=== PATIENT | male | born 1975 | race Caucasian/White ===

== ENCOUNTER 2017-12-12 20:46 | Inpatient (IN) | payer SELFPAY ==
[2017-12-12 21:20] LABS: ADD MAN DIFF? NO
[2017-12-12 21:24] LABS: BASO % 0 % (0-3); EOS # 0.3 x10^3/uL (0.0-0.7); EOS % 2 % (0-3); HEMATOCRIT 48.2 % (39.0-53.0); HEMOGLOBIN 16.8 g/dL (13.0-17.5); LYMPH # 2.4 x10^3/uL (1.0-4.8); LYMPH % 22 % (24-48); MEAN CORPUSCULAR HEMOGLOBIN 32 pg (25-35); MEAN CORPUSCULAR HGB CONC 35 g/dL (31-37); MEAN CORPUSCULAR VOLUME 92 fL (79-100); MONO # 0.8 x10^3/uL (0.0-1.1); MONO % 7 % (0-9); NEUT # 7.4 x10^3uL (1.8-7.7); NEUT % 68 % (31-73); PLATELET COUNT 244 x10^3/uL (140-400); RED BLOOD COUNT 5.25 x10^6/uL (4.30-5.70); RED CELL DISTRIBUTION WIDTH 12.8 % (11.5-14.5); WHITE BLOOD COUNT 10.8 x10^3/uL (4.0-11.0)
[2017-12-12 21:31] LABS: ANION GAP 13 (6-14); BLOOD UREA NITROGEN 13 mg/dL (8-26); BUN/CREATININE RATIO 11 (6-20); CALCIUM 9.3 mg/dL (8.5-10.1); CARBON DIOXIDE 23 mmol/L (21-32); CHLORIDE 101 mmol/L (98-107); CREATININE 1.2 mg/dL (0.7-1.3); GFR 66.1; GLUCOSE 112 mg/dL (70-99); POTASSIUM 3.6 mmol/L (3.5-5.1); SODIUM 137 mmol/L (136-145)
[2017-12-12 21:37] LABS: ALBUMIN 3.6 g/dL (3.4-5.0); ALBUMIN/GLOBULIN RATIO 0.9 (1.0-1.7); ALK PHOS 98 U/L (46-116); ALT (SGPT) 41 U/L (16-63); AST (SGOT) 25 U/L (15-37); TOTAL BILIRUBIN 0.7 mg/dL (0.2-1.0); TOTAL PROTEIN 7.7 g/dL (6.4-8.2)
[2017-12-12 21:41] LABS: TROPONINI < 0.017 ng/mL (0.000-0.055)
[2017-12-12] MEDS: IV NORMAL SALINE 1000ML BAG 1,000 ML IV (21:45)
[2017-12-12] MEDS: ONDANSETRON PF 4 MG/2 ML VIAL. IV (21:45)
[2017-12-12] MEDS: fentaNYL PF VIAL 100 MCG/2 ML VIAL IV ×2 (21:46→23:48)
[2017-12-12] MEDS ORDERED: IOHEXOL 300 MG/ML 100ML VIAL. (22:17)
[2017-12-12] MEDS: IOHEXOL 300 MG/ML 100ML VIAL. IV (22:28)
[2017-12-12] MEDS ORDERED: CONTRAST GIVEN. MC (22:30)
[2017-12-13] MEDS ORDERED: ONDANSETRON PF 4 MG/2 ML VIAL. IV ×2 (00:45→08:45)
[2017-12-13] MEDS: MORPHINE SULFATE 2 MG/ML DISP.SYRIN. IV ×9 (01:46→22:07)
[2017-12-13] MEDS: HYDROcodone/APAP 5/325MG 1 TAB TABLET PO (13:20)
[2017-12-13] MEDS: ANTI-COAG MONITOR BY PHARMACY. MC ×2 (16:17→16:26)
[2017-12-13] MEDS: NICOTINE 21MG PATCH. TD (20:00)
[2017-12-14] MEDS: traMADol 50 MG TABLET PO ×2 (00:58→07:24)
[2017-12-14] MEDS: MORPHINE SULFATE 2 MG/ML DISP.SYRIN. IV ×4 (03:24→12:35)
[2017-12-14 04:38] LABS: ADD MAN DIFF? NO
[2017-12-14 04:50] LABS: BASO # 0.1 x10^3/uL (0.0-0.2); BASO % 1 % (0-3); EOS # 0.3 x10^3/uL (0.0-0.7); EOS % 4 % (0-3); HEMATOCRIT 42.3 % (39.0-53.0); HEMOGLOBIN 14.8 g/dL (13.0-17.5); LYMPH # 2.3 x10^3/uL (1.0-4.8); LYMPH % 33 % (24-48); MEAN CORPUSCULAR HEMOGLOBIN 32 pg (25-35); MEAN CORPUSCULAR HGB CONC 35 g/dL (31-37); MEAN CORPUSCULAR VOLUME 93 fL (79-100); MONO # 0.5 x10^3/uL (0.0-1.1); MONO % 8 % (0-9); NEUT # 3.8 x10^3uL (1.8-7.7); NEUT % 55 % (31-73); PLATELET COUNT 228 x10^3/uL (140-400); RED BLOOD COUNT 4.57 x10^6/uL (4.30-5.70)
[2017-12-14 05:25] LABS: ANION GAP 8 (6-14); BLOOD UREA NITROGEN 11 mg/dL (8-26); CALCIUM 8.2 mg/dL (8.5-10.1); CARBON DIOXIDE 28 mmol/L (21-32); CHLORIDE 103 mmol/L (98-107); CREATININE 1.1 mg/dL (0.7-1.3); GFR 73.1; GLUCOSE 110 mg/dL (70-99); SODIUM 139 mmol/L (136-145)
[2017-12-14] MEDS: ACETAMINOPHEN 500 MG TABLET PO (07:23)
[2017-12-14] MEDS: NICOTINE 21MG PATCH. TD (07:29)
[2017-12-14] MEDS: ANTI-COAG MONITOR BY PHARMACY. MC (09:51)
[2017-12-15 13:55] LABS: HOMOCYSTINE LEVEL 9.5 umol/L (0.0-15.0)
[2017-12-17 12:00] LABS: CARDIOLIPIN ANTIBODIES SEE SEPARATE REPORT
== END 2017-12-14 14:17 | disposition home or self-care (01) | DRG 299 ==
LOC: 5 NORTH 12-13 00:32 → ER 20:46
DX: I82.401 Acute embolism and thrombosis of unspecified deep veins of right lower extremity (principal); I26.99 Other pulmonary embolism without acute cor pulmonale; F41.9 Anxiety disorder, unspecified; Z82.49 Family history of ischemic heart disease and other diseases of the circulatory system; E78.5 Hyperlipidemia, unspecified; I10 Essential (primary) hypertension; Z86.718 Personal history of other venous thrombosis and embolism; F17.200 Nicotine dependence, unspecified, uncomplicated
CPT/HCPCS: 36415; 71045; 71275; 80048; 80053; 83090; 84484; 85025; 93005; 93306; 96361; 96372; 96374; 96375; 96376; 99285; 99285-25; J1650; J2270; J2405; J3010; J7030; Q9967

== ENCOUNTER 2017-12-30 23:02 | Inpatient (IN) | payer SELFPAY ==
[2017-12-30 23:32] LABS: ADD MAN DIFF? NO
[2017-12-30] MEDS: IV NORMAL SALINE 1000ML BAG 1,000 ML IV (23:33)
[2017-12-30 23:34] LABS: BASO # 0.1 x10^3/uL (0.0-0.2); BASO % 1 % (0-3); EOS # 0.1 x10^3/uL (0.0-0.7); EOS % 1 % (0-3); HEMATOCRIT 45.2 % (39.0-53.0); HEMOGLOBIN 15.9 g/dL (13.0-17.5); LYMPH # 2.6 x10^3/uL (1.0-4.8); LYMPH % 28 % (24-48); MEAN CORPUSCULAR HEMOGLOBIN 33 pg (25-35); MEAN CORPUSCULAR HGB CONC 35 g/dL (31-37); MEAN CORPUSCULAR VOLUME 92 fL (79-100); MONO # 0.6 x10^3/uL (0.0-1.1); MONO % 6 % (0-9); NEUT % 64 % (31-73); PLATELET COUNT 262 x10^3/uL (140-400); RED CELL DISTRIBUTION WIDTH 12.9 % (11.5-14.5); WHITE BLOOD COUNT 9.4 x10^3/uL (4.0-11.0)
[2017-12-30] MEDS: fentaNYL PF VIAL 100 MCG/2 ML VIAL IV (23:35)
[2017-12-30 23:43] LABS: INR 1.1 (0.8-1.1); PARTIAL THROMBOPLASTIN TIME 29 SEC (24-38); PROTHROMBIN TIME PATIENT 13.7 SEC (11.7-14.0)
[2017-12-30 23:46] LABS: LIPASE 150 U/L (73-393)
[2017-12-30 23:46] LABS: ANION GAP 13 (6-14); BLOOD UREA NITROGEN 17 mg/dL (8-26); BUN/CREATININE RATIO 14 (6-20); CALCIUM 8.9 mg/dL (8.5-10.1); CARBON DIOXIDE 23 mmol/L (21-32); CHLORIDE 104 mmol/L (98-107); CREATININE 1.2 mg/dL (0.7-1.3); GFR 65.8; GLUCOSE 148 mg/dL (70-99); POTASSIUM 3.8 mmol/L (3.5-5.1); SODIUM 140 mmol/L (136-145)
[2017-12-30 23:52] LABS: ALBUMIN 3.7 g/dL (3.4-5.0); ALBUMIN/GLOBULIN RATIO 1.2 (1.0-1.7); ALK PHOS 88 U/L (46-116); ALT (SGPT) 69 U/L (16-63); AST (SGOT) 39 U/L (15-37); MAGNESIUM 1.9 mg/dL (1.8-2.4); TOTAL BILIRUBIN 0.6 mg/dL (0.2-1.0); TOTAL PROTEIN 6.7 g/dL (6.4-8.2)
[2017-12-30 23:55] LABS: TROPONINI < 0.017 ng/mL (0.000-0.055)
[2017-12-31] LABS: CKMB INDEX 0.3 % (0-4); CKMB MASS 1.1 ng/mL (0.0-3.6); CREATINE KINASE 369 U/L (39-308)
[2017-12-31] LABS: NT-PRO BNP 64 pg/mL (0-124)
[2017-12-31] MEDS: MORPHINE SULFATE 4 MG/ML DISP.SYRIN. IV ×7 (00:17→15:09)
[2017-12-31] MEDS ORDERED: ONDANSETRON PF 4 MG/2 ML VIAL. IV ×3 (01:30→08:00)
[2017-12-31 06:41] LABS: TROPONINI < 0.017 ng/mL (0.000-0.055)
[2017-12-31] MEDS ORDERED: ONDANSETRON ODT 4 MG TAB.RAPDIS. PO (08:00)
[2017-12-31 08:52] LABS: TROPONINI < 0.017 ng/mL (0.000-0.055)
[2017-12-31] MEDS: RIVAROXABAN 15 MG TABLET. PO ×2 (09:07→19:52)
[2017-12-31] MEDS: ACETAMINOPHEN 500 MG TABLET PO (11:25)
[2017-12-31] MEDS: IOHEXOL 300 MG/ML 100ML VIAL. IV (12:00)
[2017-12-31] MEDS ORDERED: CONTRAST GIVEN. MC (12:15)
[2017-12-31] MEDS: FAMOTIDINE 20 MG TABLET. PO ×2 (13:06→19:52)
[2017-12-31] MEDS: ANTI-COAG MONITOR BY PHARMACY. MC (14:10)
[2017-12-31] MEDS: ACETAMINOPHEN/CODEINE 300/30MG TABLET. PO (19:51)
[2017-12-31] MEDS: traZODone 50 MG TABLET. PO (22:00)
[2018-01-01] MEDS: ACETAMINOPHEN/CODEINE 300/30MG TABLET. PO ×2 (02:18→09:56)
[2018-01-01] MEDS: FAMOTIDINE 20 MG TABLET. PO (09:56)
[2018-01-01] MEDS: ANTI-COAG MONITOR BY PHARMACY. MC (14:16)
[2018-01-01] MEDS ORDERED: RIVAROXABAN 10 MG TABLET. PO (17:00)
[2018-01-02] MEDS ORDERED: PANTOPRAZOLE 40 MG TABLET.DR. PO (07:30)
== END 2018-01-01 15:50 | disposition home or self-care (01) | DRG 392 ==
LOC: 2 SOUTH 12-31 01:30 → ER 23:02
DX: K21.9 Gastro-esophageal reflux disease without esophagitis (principal); D68.51 Activated protein C resistance; I10 Essential (primary) hypertension; E78.5 Hyperlipidemia, unspecified; F41.9 Anxiety disorder, unspecified; E66.9 Obesity, unspecified; I87.009 Postthrombotic syndrome without complications of unspecified extremity; F17.210 Nicotine dependence, cigarettes, uncomplicated; F51.04 Psychophysiologic insomnia; R91.1 Solitary pulmonary nodule; Z86.711 Personal history of pulmonary embolism; Z86.718 Personal history of other venous thrombosis and embolism; Z68.34 Body mass index [BMI] 34.0-34.9, adult; Z79.01 Long term (current) use of anticoagulants; Z82.49 Family history of ischemic heart disease and other diseases of the circulatory system; Z80.7 Family history of other malignant neoplasms of lymphoid, hematopoietic and related tissues; Z83.3 Family history of diabetes mellitus
CPT/HCPCS: 36415; 71045; 71275; 80053; 82553; 83690; 83735; 83880; 84484; 85025; 85610; 85730; 93005; 96361; 96372; 96374; 99285; 99285-25; J1650; J2270; J3010; J7030; Q9967

== ENCOUNTER 2019-07-28 04:06 | Emergency (ER) | payer OTHER ==
[~2019-07-28] VITALS: Ht 177.8 cm; Wt 100.0 kg
[~2019-07-28 04:06] MED LIST: APIX5TAB PO; MAG355OR11 PO; RIVA15TA PO; RIVA20TA2 PO; TRAZ-118 PO
[2019-07-28] MEDS ORDERED: NITROGLYCERIN SUBLINGUAL 0.4 MG BOTTLE OF 25. SL PRN (04:30)
[2019-07-28] MEDS ORDERED: ASPIRIN CHEWABLE 81 MG TABLET. PO ONE (04:30)
--- NOTE | 2019-07-28 04:30 | PHYS DOC ---
Past Medical History Past Medical History: DVT Additional Past Medical Histor: CARDIAC CATH WITH NO INTERVENTIONS, PULMONARY EMBOLI (KARISHMA SHEPARD MD) Past Surgical History: Other Additional Past Surgical Histo: HEART CATH 2003 (KARISHMA SHEPARD MD) Smoking Status: Current Some Day Smoker Alcohol Use: None Drug Use: None (KARISHMA SHEPARD MD) Adult General Chief Complaint Chief Complaint: CHEST PAIN HPI HPI 43-year-old male presents to the emergency department with complaints of wrist pain which woke him approximately 2 AM. Patient has a history of hypertension, he states he's had a cardiac catheter before however no stent placement. He describes the pain as achy, sharp worse with ambulation. He denies any nausea, vomiting, shortness breath, diaphoresis. He does state he's had a cough. The pain woke him again around 2 AM subsequently subsided he went to work however states at work he had worsening pain and therefore presented the emergency department for further evaluation. Pain does not radiate. (KARISHMA SHEPARD MD) Review of Systems Review of Systems Constitutional: Denies fever or chills [] Respiratory: Denies cough or shortness of breath [] Cardiovascular: No additional information not addressed in HPI [] GI: Denies abdominal pain, nausea, vomiting, bloody stools or diarrhea [] : Denies dysuria or hematuria [] Musculoskeletal: Denies back pain or joint pain [] Integument: Denies rash or skin lesions [] Neurologic: Denies headache, focal weakness or sensory changes [] All other systems were reviewed and found to be within normal limits, except as documented in this note. (KARISHMA SHEPARD MD) Current Medications Current Medications Current Medications Medications (Trade) Dose Ordered Sig/[facility] Start Time Stop Time Status Last Admin Dose Admin Acetaminophen (Tylenol) 1,000 mg 1X ONCE 07/28/19 05:15 07/28/19 05:16 DC 07/28/19 05:28 1,000 MG Aspirin (Children'S Aspirin) 324 mg 1X ONCE 07/28/19 04:30 07/28/19 04:34 DC 07/28/19 04:35 324 MG Nitroglycerin (Nitrostat) 0.4 mg STK-MED ONCE 07/28/19 04:34 07/28/19 04:34 DC (JAKE EVERETT MD) Allergies Allergies Allergies Coded Allergies Type Severity Reaction Last Updated Verified No Known Drug Allergies 02/28/15 No (JAKE EVERETT MD) Physical Exam Physical Exam Constitutional: Well developed, well nourished, no acute distress, non-toxic appearance. [] HENT: Normocephalic, atraumatic, bilateral external ears normal, oropharynx moist, no oral exudates, nose normal. [] Eyes: PERRLA, EOMI, conjunctiva normal, no discharge. [] Neck: Normal range of motion, no tenderness, supple, no stridor. [] Cardiovascular:Heart rate regular rhythm, no murmur [] Lungs & Thorax: Bilateral breath sounds clear to auscultation [] Abdomen: Bowel sounds normal, soft, no tenderness, no masses, no pulsatile masses. [] Skin: Warm, dry, no erythema, no rash. [] Back: No tenderness, no CVA tenderness. [] Extremities: No tenderness, no cyanosis, no clubbing, ROM intact, no edema. [] Neurologic: Alert and oriented X 3, normal motor function, normal sensory function, no focal deficits noted. [] Psychologic: Affect normal, judgement normal, mood normal. [] (KARISHMA SHEPARD MD) Current Patient Data Vital Signs Vital Signs Date Time Temp Pulse Resp B/P (MAP) Pulse Ox O2 Delivery O2 Flow Rate FiO2 07/28/19 06:30 66 20 112/68 (83) 97 Room Air 07/28/19 04:08 98.2 98.2 (JAKE EVERETT MD) Lab Values Laboratory Tests Test 07/28/19 04:25 07/28/19 07:15 White Blood Count 6.2 x10^3/uL (4.0-11.0) Red Blood Count 5.23 x10^6/uL (4.30-5.70) Hemoglobin 17.0 g/dL (13.0-17.5) Hematocrit 49.2 % (39.0-53.0) Mean Corpuscular Volume 94 fL (79-100) Mean Corpuscular Hemoglobin 32 pg (25-35) Mean Corpuscular Hemoglobin Concent 35 g/dL (31-37) Red Cell Distribution Width 12.7 % (11.5-14.5) Platelet Count 241 x10^3/uL (140-400) Neutrophils (%) (Auto) 63 % (31-73) Lymphocytes (%) (Auto) 27 % (24-48) Monocytes (%) (Auto) 8 % (0-9) Eosinophils (%) (Auto) 2 % (0-3) Basophils (%) (Auto) 0 % (0-3) Neutrophils # (Auto) 3.9 x10^3/uL (1.8-7.7) Lymphocytes # (Auto) 1.7 x10^3/uL (1.0-4.8) Monocytes # (Auto) 0.5 x10^3/uL (0.0-1.1) Eosinophils # (Auto) 0.1 x10^3/uL (0.0-0.7) Basophils # (Auto) 0.0 x10^3/uL (0.0-0.2) D-Dimer (Mary Lou) 0.40 ug/mlFEU (0.00-0.50) Sodium Level 139 mmol/L (136-145) Potassium Level 4.1 mmol/L (3.5-5.1) Chloride Level 105 mmol/L (98-107) Carbon Dioxide Level 25 mmol/L (21-32) Anion Gap 9 (6-14) Blood Urea Nitrogen 12 mg/dL (8-26) Creatinine 0.8 mg/dL (0.7-1.3) Estimated GFR (Cockcroft-Gault) 104.5 BUN/Creatinine Ratio 15 (6-20) Glucose Level 124 mg/dL (70-99) H Calcium Level 9.0 mg/dL (8.5-10.1) Magnesium Level 2.2 mg/dL (1.8-2.4) Total Bilirubin 0.6 mg/dL (0.2-1.0) Aspartate Amino Transferase (AST) 30 U/L (15-37) Alanine Aminotransferase (ALT) 52 U/L (16-63) Alkaline Phosphatase 76 U/L (46-116) Troponin I Quantitative < 0.017 ng/mL (0.000-0.055) < 0.017 ng/mL (0.000-0.055) AZ-Xpj-I-Type Natriuretic Peptide 11 pg/mL (0-124) Total Protein 6.6 g/dL (6.4-8.2) Albumin 3.7 g/dL (3.4-5.0) Albumin/Globulin Ratio 1.3 (1.0-1.7) Lipase 133 U/L (73-393) Laboratory Tests 07/28/19 04:25 Laboratory Tests 07/28/19 04:25 (JAKE EVERETT MD) Lab Values Laboratory Tests Test 07/28/19 04:25 White Blood Count 6.2 x10^3/uL (4.0-11.0) Red Blood Count 5.23 x10^6/uL (4.30-5.70) Hemoglobin 17.0 g/dL (13.0-17.5) Hematocrit 49.2 % (39.0-53.0) Mean Corpuscular Volume 94 fL (79-100) Mean Corpuscular Hemoglobin 32 pg (25-35) Mean Corpuscular Hemoglobin Concent 35 g/dL (31-37) Red Cell Distribution Width 12.7 % (11.5-14.5) Platelet Count 241 x10^3/uL (140-400) Neutrophils (%) (Auto) 63 % (31-73) Lymphocytes (%) (Auto) 27 % (24-48) Monocytes (%) (Auto) 8 % (0-9) Eosinophils (%) (Auto) 2 % (0-3) Basophils (%) (Auto) 0 % (0-3) Neutrophils # (Auto) 3.9 x10^3/uL (1.8-7.7) Lymphocytes # (Auto) 1.7 x10^3/uL (1.0-4.8) Monocytes # (Auto) 0.5 x10^3/uL (0.0-1.1) Eosinophils # (Auto) 0.1 x10^3/uL (0.0-0.7) Basophils # (Auto) 0.0 x10^3/uL (0.0-0.2) D-Dimer (Mary Lou) 0.40 ug/mlFEU (0.00-0.50) Sodium Level 139 mmol/L (136-145) Potassium Level 4.1 mmol/L (3.5-5.1) Chloride Level 105 mmol/L (98-107) Carbon Dioxide Level 25 mmol/L (21-32) Anion Gap 9 (6-14) Blood Urea Nitrogen 12 mg/dL (8-26) Creatinine 0.8 mg/dL (0.7-1.3) Estimated GFR (Cockcroft-Gault) 104.5 BUN/Creatinine Ratio 15 (6-20) Glucose Level 124 mg/dL (70-99) H Calcium Level 9.0 mg/dL (8.5-10.1) Magnesium Level 2.2 mg/dL (1.8-2.4) Total Bilirubin 0.6 mg/dL (0.2-1.0) Aspartate Amino Transferase (AST) 30 U/L (15-37) Alanine Aminotransferase (ALT) 52 U/L (16-63) Alkaline Phosphatase 76 U/L (46-116) Troponin I Quantitative < 0.017 ng/mL (0.000-0.055) FR-Obm-J-Type Natriuretic Peptide 11 pg/mL (0-124) Total Protein 6.6 g/dL (6.4-8.2) Albumin 3.7 g/dL (3.4-5.0) Albumin/Globulin Ratio 1.3 (1.0-1.7) Lipase 133 U/L (73-393) Laboratory Tests 07/28/19 04:25 Laboratory Tests 07/28/19 04:25 (KARISHMA SHEPARD MD) EKG EKG EKG reviewed, normal sinus rhythm, heart rate 85, left axis deviation interpretation time 0 426, no STEMI[] (KARISHMA SHEPARD MD) Radiology/Procedures Radiology/Procedures [facility] [address] [place] [address] IMAGING REPORT Signed PATIENT: ALINE MCCLELLAN ACCOUNT: [id number] : 1975 LOCATION: ER AGE: 43 SEX: M EXAM STATUS: REG ER ORD. PHYSICIAN: KARISHMA SHEPARD MD REASON: chest pain PROCEDURE: PORTABLE CHEST 1V Single view chest dated 07/28/2019: No comparison available. Clinical Indication: Chest pain. Findings: Single upright portable exam of the chest was performed. Heart size and mediastinal contours are within normal limits given technique. The lungs are clear without evidence of focal consolidation. Vascular interstitium is within normal limits. Impression:: Negative portable chest. Electronically signed by: Milton Arboleda MD (07/28/2019 4:35 AM) [id number] DICTATED and SIGNED BY: MILTON ARBOLEDA MD DATE: 07/28/19 0435 [] (KARISHMA SHEPARD MD) Course & Med Decision Making Course & Med Decision Making Pertinent Labs and Imaging studies reviewed. (See chart for details) []43-year-old male presents to the emergency department with complaints of wrist pain which woke him approximately 2 AM. Patient has a history of hypertension, he states he's had a cardiac catheter before however no stent placement. He describes the pain as achy, sharp worse with ambulation. He denies any nausea, vomiting, shortness breath, diaphoresis. He does state he's had a cough. The pain woke him again around 2 AM subsequently subsided he went to work however states at work he had worsening pain and therefore presented the emergency department for further evaluation. Pain does not radiate. ASA/NTG provided Reassessment - pain improved in chest 0500 however patient with headache HEART score 2 Initial troponin negative repeat pending 3 hours from now Ddimer ordered will follow up, patient with history of DVT/PE only on aspirin at this time - ddimer within in normal limits Care to be transferred to oncoming colleague DR EVERETT at shift change - awaiting 2nd enzyme set, she will follow up with disposition HEART score as above if no return of chest pain and negative 2nd enzyme set would recommend dc home and follow up with PCP (KARISHMA SHEPARD MD) Course & Med Decision Making At 0700:Patient care transferred to [place] at 0600 for follow-up for results of repeat troponin at 0710. Patient was evaluated and chart reviewed. Patient was chest pain-free. Patient has heart score of 2 and history of DVT and PE with negative d-dimer and cardiac enzyme and electrolytes. In for the results of repeat troponin at 0710. At 0830: Second set of troponin was negative. Patient was advised follow-up with his primary care physician for more cardiac evaluation. (JAKE EVERETT MD) Dragon Disclaimer Dragon Disclaimer This electronic medical record was generated, in whole or in part, using a voice recognition dictation system. (KARISHMA SHEPARD MD) The HEART Score for CP Pts HEART Score for Chest Pain: HEART Score for Chest Pain Response (Comments) Value History Slighlty/Non-Suspicious 0 ECG Normal 0 Age >45 - < 65 1 Risk Factors 1 or 2 Risk Factors 1 Troponin < Normal Limit 0 Total 2 Risk Factors: Risk Factors: DM, Current or recent (<one month) smoker, HTN, HLP, family history of CAD, obesity. Risk Scores: Score 0 - 3: 2.5% MACE over next 6 weeks - Discharge Home Score 4 - 6: 20.3% MACE over next 6 weeks - Admit for Clinical Observation Score 7 - 10: 72.7% MACE over next 6 weeks - Early Invasive Strategies (KARISHMA SHEPARD MD) Departure Departure Impression: Primary Impression: Chest pain Disposition: HOME, SELF-CARE (at 08-32) Condition: STABLE Referrals: BASILIO BENTON (PCP) Patient Instructions: Chest Pain (Nonspecific) Additional Instructions: Follow-up with your primary care physician in 2-3 days for more heart evaluation Return to ER if not getting better Problem Qualifiers Primary Impression: Chest pain Chest pain type: unspecified Qualified Codes: R07.9 - Chest pain, unspecified KARISHMA SHEPARD MD Jul 28, 2019 04:30 JAKE EVERETT MD Jul 28, 2019 08:00
[2019-07-28] MEDS ORDERED: NITROGLYCERIN SUBLINGUAL 0.4 MG BOTTLE OF 25. SL ONE (04:34)
[2019-07-28 04:36] LABS: BASO % 0 % (0-3); EOS # 0.1 x10^3/uL (0.0-0.7); EOS % 2 % (0-3); HEMATOCRIT 49.2 % (39.0-53.0); LYMPH # 1.7 x10^3/uL (1.0-4.8); LYMPH % 27 % (24-48); MEAN CORPUSCULAR HEMOGLOBIN 32 pg (25-35); MEAN CORPUSCULAR HGB CONC 35 g/dL (31-37); MEAN CORPUSCULAR VOLUME 94 fL (79-100); MONO # 0.5 x10^3/uL (0.0-1.1); MONO % 8 % (0-9); NEUT # 3.9 x10^3/uL (1.8-7.7); NEUT % 63 % (31-73); PLATELET COUNT 241 x10^3/uL (140-400); RED BLOOD COUNT 5.23 x10^6/uL (4.30-5.70); RED CELL DISTRIBUTION WIDTH 12.7 % (11.5-14.5); WHITE BLOOD COUNT 6.2 x10^3/uL (4.0-11.0)
--- NOTE | 2019-07-28 04:38 | RAD ---
Single view chest dated 07/28/2019: No comparison available. Clinical Indication: Chest pain. Findings: Single upright portable exam of the chest was performed. Heart size and mediastinal contours are within normal limits given technique. The lungs are clear without evidence of focal consolidation. Vascular interstitium is within normal limits. Impression:: Negative portable chest. Electronically signed by: Milton Arboleda MD (07/28/2019 4:35 AM) [id number]
[2019-07-28 04:43] LABS: CREATININE 0.8 mg/dL (0.7-1.3); GFR 104.5; POTASSIUM 4.1 mmol/L (3.5-5.1)
[2019-07-28 04:53] LABS: ALBUMIN 3.7 g/dL (3.4-5.0); ALBUMIN/GLOBULIN RATIO 1.3 (1.0-1.7); MAGNESIUM 2.2 mg/dL (1.8-2.4); TOTAL BILIRUBIN 0.6 mg/dL (0.2-1.0); TOTAL PROTEIN 6.6 g/dL (6.4-8.2)
[2019-07-28] MEDS ORDERED: ACETAMINOPHEN 500 MG TABLET PO ONE (05:15)
--- NOTE | 2019-07-28 05:58 | EKG ---
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
[2019-07-28 09:00] VITALS: BP 116/69
== END 2019-07-28 09:05 | disposition home or self-care (01) ==
LOC: ER 04:06
DX: R07.89 Other chest pain (principal); M25.539 Pain in unspecified wrist; F17.200 Nicotine dependence, unspecified, uncomplicated; I10 Essential (primary) hypertension; Z98.890 Other specified postprocedural states; Z86.718 Personal history of other venous thrombosis and embolism
CPT/HCPCS: 36415; 71045; 80053; 83690; 83735; 83880; 84484; 85025; 85379; 93005; 99285

== ENCOUNTER 2020-10-24 15:34 | Emergency (ER) | payer OTHER ==
[~2020-10-24] VITALS: Ht 177.8 cm; Wt 104.5 kg
[2020-10-24 15:58] LABS: BASO % 1 % (0-3); EOS # 0.1 x10^3/uL (0.0-0.7); EOS % 2 % (0-3); HEMATOCRIT 48.5 % (39.0-53.0); HEMOGLOBIN 17.3 g/dL (13.0-17.5); LYMPH # 2.2 x10^3/uL (1.0-4.8); LYMPH % 28 % (24-48); MEAN CORPUSCULAR HEMOGLOBIN 33 pg (25-35); MEAN CORPUSCULAR HGB CONC 36 g/dL (31-37); MEAN CORPUSCULAR VOLUME 92 fL (79-100); MONO # 0.5 x10^3/uL (0.0-1.1); MONO % 6 % (0-9); NEUT # 4.9 x10^3/uL (1.8-7.7); NEUT % 63 % (31-73); PLATELET COUNT 238 x10^3/uL (140-400); RED BLOOD COUNT 5.29 x10^6/uL (4.30-5.70); RED CELL DISTRIBUTION WIDTH 13.1 % (11.5-14.5); WHITE BLOOD COUNT 7.8 x10^3/uL (4.0-11.0)
[2020-10-24] MEDS ORDERED: FAMOTIDINE 20 MG/2 ML VIAL IVP ONE (16:00)
[2020-10-24] MEDS ORDERED: IV NORMAL SALINE 1000ML BAG 1,000 ML IV ONE (16:00)
[2020-10-24] MEDS ORDERED: methylPREDNISolone SOD SUCC PF 125 MG/2 ML VIAL. IV ONE (16:00)
--- NOTE | 2020-10-24 16:10 | PHYS DOC ---
Past Medical History Past Medical History: DVT Additional Past Medical Histor: CARDIAC CATH WITH NO INTERVENTIONS, PULMONARY EMBOLI Past Surgical History: Other Additional Past Surgical Histo: HEART CATH 2003 Smoking Status: Current Some Day Smoker Additional Information: 1 ppd Alcohol Use: None Drug Use: None General Adult EDM: Chief Complaint: INSECT BITE HPI: HPI: Patient is a 44 year old male who presents with was letting his dog out side when he was in the doorway and got stung in the right neck by a wasp. He rates his pain a 6 out of 10. He states the minute he got stung by the wasp he became very dizzy. He denies syncope. EMS gave the patient 50 mg IM of Benadryl. Patient denies shortness of breath, neck tightness, throat tightness, throat itching, facial swelling, hives, chest pain, abdominal pain, nausea, vomiting, diarrhea, syncope. Review of Systems: Review of Systems: Constitutional: Denies fever or chills. [] Eyes: Denies change in visual acuity. [] HENT: Denies nasal congestion or sore throat. [] Respiratory: Denies cough or shortness of breath. [] Cardiovascular: Denies chest pain or edema. [] GI: Denies abdominal pain, nausea, vomiting, bloody stools or diarrhea. [] : Denies dysuria. [] Musculoskeletal: Denies back pain or joint pain. [] Integument: Denies rash. + Right neck insect sting [] Neurologic: Denies headache, focal weakness or sensory changes. + Dizziness [] Endocrine: Denies polyuria or polydipsia. [] Lymphatic: Denies swollen glands. [] Psychiatric: Denies depression or anxiety. [] Heart Score: C/O Chest Pain: No Risk Factors: Risk Factors: DM, Current or recent (<one month) smoker, HTN, HLP, family history of CAD, obesity. Risk Scores: Score 0 - 3: 2.5% MACE over next 6 weeks - Discharge Home Score 4 - 6: 20.3% MACE over next 6 weeks - Admit for Clinical Observation Score 7 - 10: 72.7% MACE over next 6 weeks - Early Invasive Strategies Current Medications: Current Medications Medications (Trade) Dose Ordered Sig/Alfred Start Time Stop Time Status Last Admin Dose Admin Famotidine (Pepcid Vial) 20 mg 1X ONCE 10/24/20 16:00 10/24/20 16:01 DC 10/24/20 15:59 20 MG Methylprednisolone Sodium Succinate (SOLU-Medrol 125MG VIAL) 125 mg 1X ONCE 10/24/20 16:00 10/24/20 16:01 DC 10/24/20 16:05 125 MG Sodium Chloride 1,000 ml @ 1,000 mls/hr 1X ONCE 10/24/20 16:00 10/24/20 16:59 10/24/20 15:56 1,000 MLS/HR Allergies: Allergies: Allergies Coded Allergies Type Severity Reaction Last Updated Verified No Known Drug Allergies 10/24/20 No Physical Exam: PE: Constitutional: Well developed, well nourished, no acute distress, non-toxic appearance. [] HENT: Normocephalic, atraumatic, bilateral external ears normal, oropharynx moist, no oral exudates, nose normal. [] Eyes: PERRLA, EOMI, conjunctiva normal, no discharge. [] Neck: Normal range of motion, no tenderness, supple, no stridor. [] Cardiovascular:Heart rate regular rhythm, no murmur [] Lungs & Thorax: Bilateral breath sounds clear to auscultation [] Abdomen: Bowel sounds normal, soft, no tenderness, no masses, no pulsatile masses. [] Skin: Warm, dry, no erythema, no rash. Insect sting to the right neck with redness [] Back: No tenderness, no CVA tenderness. [] Extremities: No tenderness, no cyanosis, no clubbing, ROM intact, no edema. [] Neurologic: Alert and oriented X 3, normal motor function, normal sensory function, no focal deficits noted. [] Psychologic: Affect normal, judgement normal, mood normal. [] Current Patient Data: Labs: Laboratory Tests Test 10/24/20 15:50 White Blood Count 7.8 x10^3/uL (4.0-11.0) Red Blood Count 5.29 x10^6/uL (4.30-5.70) Hemoglobin 17.3 g/dL (13.0-17.5) Hematocrit 48.5 % (39.0-53.0) Mean Corpuscular Volume 92 fL (79-100) Mean Corpuscular Hemoglobin 33 pg (25-35) Mean Corpuscular Hemoglobin Concent 36 g/dL (31-37) Red Cell Distribution Width 13.1 % (11.5-14.5) Platelet Count 238 x10^3/uL (140-400) Neutrophils (%) (Auto) 63 % (31-73) Lymphocytes (%) (Auto) 28 % (24-48) Monocytes (%) (Auto) 6 % (0-9) Eosinophils (%) (Auto) 2 % (0-3) Basophils (%) (Auto) 1 % (0-3) Neutrophils # (Auto) 4.9 x10^3/uL (1.8-7.7) Lymphocytes # (Auto) 2.2 x10^3/uL (1.0-4.8) Monocytes # (Auto) 0.5 x10^3/uL (0.0-1.1) Eosinophils # (Auto) 0.1 x10^3/uL (0.0-0.7) Basophils # (Auto) 0.0 x10^3/uL (0.0-0.2) Laboratory Tests 10/24/20 15:50 Vital Signs: Vital Signs Date Time Temp Pulse Resp B/P (MAP) Pulse Ox O2 Delivery O2 Flow Rate FiO2 10/24/20 16:05 98 20 144/77 (99) 95 Room Air 10/24/20 15:38 98.1 98.1 EKG: EK and read by Dr. Reid is sinus rhythm and no STEMI Radiology/Procedures: Radiology/Procedures: [] Course & Med Decision Making: Course & Med Decision Making Pertinent Labs and Imaging studies reviewed. (See chart for details) See HPI. Alert and oriented x4. Ambulatory with steady gait. Speaks in full clear sentences. Throat is not swollen uvula is midline. No tongue swelling or angioedema present. Wasp sting is about a quarter size around it a red area to the right neck. There is no swelling. Full range of motion of the neck. No respiratory distress. Lungs are clear all station all lobes. Patient is given Pepcid and Solu-Medrol in the ED. He is also given a liter of normal saline fluids. Patient states he is feeling much better. The redness around the sting has gone away. Patient states he is ready to go home. He is stable and in no distress. [] Dragon Disclaimer: Dragon Disclaimer: This electronic medical record was generated, in whole or in part, using a voice recognition dictation system. Departure Departure Impression: Primary Impression: Insect sting Qualified Codes: T63.484A - Toxic effect of venom of other arthropod, undetermined, initial encounter Disposition: HOME / SELF CARE / HOMELESS Condition: STABLE Referrals: BASILIO BENTON (PCP) Patient Instructions: Insect Sting Allergy Additional Instructions: Follow-up with your primary care provider if needed. Take medication as prescribed and with food. Drink plenty of fluids. If at anytime you begin having swelling in her throat and severe shortness of breath, call 911 Scripts Diphenhydramine Hcl (BENADRYL ALLERGY) 25 Mg Tablet 2 TAB PO Q6HRS for 5 Days, #40 TAB 0 Refills Prov: DANIA JUSTICE COMM[employer] RECREATION COORDINATOR 10/24/20 Methylprednisolone (MEDROL) 4 Mg Tab.ds.pk 1 PKG PO UD, #1 PKG Prov: DANIA JUSTICE COMMUNITY RECREATION COORDINATOR 10/24/20 Famotidine (PEPCID) 20 Mg Tablet 20 MG PO BID, #10 TAB Prov: DANIA JUSTICE COMMUNITY RECREATION COORDINATOR 10/24/20 DANIA JUSTICE COMMUNITY RECREATION COORDINATOR October 24, 2020 16:10
[2020-10-24 16:16] LABS: CALCIUM 8.4 mg/dL (8.5-10.1); CREATININE 1.4 mg/dL (0.7-1.3); GFR 54.6; POTASSIUM 3.8 mmol/L (3.5-5.1)
[2020-10-24 16:23] LABS: ALBUMIN 3.9 g/dL (3.4-5.0); ALBUMIN/GLOBULIN RATIO 1.3 (1.0-1.7); TOTAL BILIRUBIN 0.8 mg/dL (0.2-1.0)
[2020-10-24] MEDS ORDERED: METH4TAB2 PO (17:52)
[2020-10-24] MEDS ORDERED: FAMO-63 PO (17:52)
[2020-10-24] MEDS ORDERED: DIPH25TA64 PO (17:52)
--- NOTE | 2020-10-24 18:06 | EKG ---
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
[2020-10-24 18:16] VITALS: BP 132/70
== END 2020-10-24 18:16 | disposition home or self-care (01) ==
LOC: ER 15:34
DX: T63.461A Toxic effect of venom of wasps, accidental (unintentional), initial encounter (principal); F17.200 Nicotine dependence, unspecified, uncomplicated; Z86.718 Personal history of other venous thrombosis and embolism; Y92.89 Other specified places as the place of occurrence of the external cause
CPT/HCPCS: 36415; 80053; 84484; 85025; 93005; 96361; 96374; 96375; 99285; J2930; J3490; J7030

== ENCOUNTER 2020-12-31 10:09 | Emergency (ER) | payer OTHER ==
[~2020-12-31] VITALS: Ht 177.8 cm; Wt 107.0 kg
[~2020-12-31 10:09] MED LIST changes: +DIPH25TA64 PO; +FAMO-63 PO; +METH4TAB2 PO
[2020-12-31 11:30] LABS: BASO % 1 % (0-3); EOS # 0.1 x10^3/uL (0.0-0.7); EOS % 2 % (0-3); HEMATOCRIT 45.6 % (39.0-53.0); HEMOGLOBIN 16.1 g/dL (13.0-17.5); LYMPH # 1.6 x10^3/uL (1.0-4.8); LYMPH % 23 % (24-48); MEAN CORPUSCULAR HEMOGLOBIN 33 pg (25-35); MEAN CORPUSCULAR HGB CONC 35 g/dL (31-37); MEAN CORPUSCULAR VOLUME 92 fL (79-100); MONO # 0.5 x10^3/uL (0.0-1.1); MONO % 6 % (0-9); NEUT # 4.9 x10^3/uL (1.8-7.7); NEUT % 69 % (31-73); PLATELET COUNT 216 x10^3/uL (140-400); RED BLOOD COUNT 4.94 x10^6/uL (4.30-5.70); RED CELL DISTRIBUTION WIDTH 12.8 % (11.5-14.5); WHITE BLOOD COUNT 7.1 x10^3/uL (4.0-11.0)
[2020-12-31 11:43] LABS: CALCIUM 8.6 mg/dL (8.5-10.1); CREATININE 0.9 mg/dL (0.7-1.3); GFR 90.4; POTASSIUM 4.2 mmol/L (3.5-5.1)
[2020-12-31 11:44] LABS: PROTHROMBIN TIME PATIENT 12.5 SEC (11.7-14.0)
[2020-12-31] MEDS ORDERED: MORPHINE SULFATE 4 MG/ML INJ. IVP ONE ×2 (11:45→13:45)
[2020-12-31] MEDS ORDERED: ONDANSETRON PF 4 MG/2 ML VIAL. IVP ONE (11:45)
[2020-12-31 11:48] LABS: ALBUMIN 3.5 g/dL (3.4-5.0); ALBUMIN/GLOBULIN RATIO 1.2 (1.0-1.7); TOTAL BILIRUBIN 0.7 mg/dL (0.2-1.0); TOTAL PROTEIN 6.5 g/dL (6.4-8.2)
[2020-12-31] MEDS ORDERED: IOHEXOL 350 MG/ML 100 ML VIAL. IV ONE (12:15)
[2020-12-31] MEDS ORDERED: CONTRAST GIVEN. MC PRN (12:15)
--- NOTE | 2020-12-31 12:46 | RAD ---
PQRS Compliance Statement: One or more of the following individualized dose reduction techniques were utilized for this examinat ion: 1. Automated exposure control 2. Adjustment of the mA and/or kV according to patient size 3. Use of iterative reconstruction technique CTA CHEST 12/31/2020 12:00 PM INDICATION: Shortness of breath, clotting disorder. History of DVT. COMPARISON: CT chest 12/31/2017 TECHNIQUE: Axial CT images of the chest were obtained after the intravenous administration of nonioni c contrast. Coronal and sagittal reformats are provided. Maximum intensity projection images of the t horacic vasculature are provided. FINDINGS: The thyroid gland is normal in appearance. There are no pathologically enlarged axillary, mediastinal or hilar lymph nodes. The heart size is within normal limits. No significant pericardial effusion. T horacic aorta is normal in course and caliber. There is adequate opacification of the pulmonary arterial system. There there are no filling defects within the pulmonary arterial system to suggest acute or chronic pulmonary embolus. 2 mm solid noncalcified pulmonary nodule in the left upper lobe anteriorly (series 3, image 69). Ther e is a 3 mm solid noncalcified nodule in the lateral right lower lobe (series 3, image 83).. There ar e no pulmonary infiltrates. There are no pleural effusions. No pulmonary vascular congestion or pneum othorax. Visualized portions of the upper abdomen are within normal limits. No suspicious osseous lesions are visualized. IMPRESSION: There is no evidence for acute or chronic pulmonary embolism. 3 mm solid noncalcified pulmonary nodule in the lateral right lower lobe. Fleischner guidelines for i ncidentally detected pulmonary nodules suggests no routine follow-up for low risk patients and option al CT at 12 months for high risk patients with solid noncalcified pulmonary nodules less than 6 mm in size. Electronically signed by: Patricia Gee MD (12/31/2020 12:44 PM) [id number]
--- NOTE | 2020-12-31 12:59 | RAD ---
Left lower extremity venous ultrasound, : History: Left leg pain, redness, swelling, history DVT Duplex evaluation including grayscale, color flow and spectral Doppler analysis was performed. The femoral and popliteal veins show no filling defects to suggest DVT. The visualized calf veins are u nremarkable. There is lack of compression of the left greater saphenous vein beginning in the mid thigh extending to the calf IMPRESSION: 1. There is no sonographic evidence of deep vein thrombosis in the left lower extremity. 2. Venous thrombosis involving the left greater saphenous vein. Electronically signed by: Herrera Castellanos MD (12/31/2020 12:57 PM) [facility]
[2020-12-31 13:56] LABS: BILIRUBIN,URINE NEGATIVE (NEG); CLARITY,URINE CLEAR; COLOR,URINE YELLOW; NITRITE,URINE NEGATIVE (NEG); PH,URINE 5.5 (<5.0-8.0); PROTEIN,URINE NEGATIVE (NEG-TRACE)
[2020-12-31 14:02] LABS: BACTERIA,URINE 0 /HPF (0-FEW); RBC,URINE 0 /HPF (0-2); WBC,URINE 0 /HPF (0-4)
[2020-12-31] MEDS ORDERED: APIX5TAB PO (14:27)
--- NOTE | 2020-12-31 14:28 | PHYS DOC ---
Past Medical History Past Medical History: DVT Additional Past Medical Histor: CARDIAC CATH WITH NO INTERVENTIONS, PULMONARY EMBOLI Past Surgical History: Other Additional Past Surgical Histo: HEART CATH 2003 Smoking Status: Current Some Day Smoker Alcohol Use: Occasionally Drug Use: None General Adult EDM: Chief Complaint: LOWER EXT PAIN HPI: HPI: Patient is a 45 year old male who presents to the emergency department complaining of left lower leg pain for the past week and a half. Patient reports it started near the inside of his left calf which lasted about 2 days, on the third day he noticed his pain was slowly migrating up his inner thigh. Patient reports that he wears thigh-high compression garments related to a blood clotting disorder. 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 Denies alcohol or drug use. Patient currently reports his left leg pain a 8 out of 10. States he feels slightly nauseated but relates this to his pain, denies any abdominal pain or vomiting or diarrhea. Patient denies chest pain or shortness of breath. Denies chest palpitations, diaphoretic episodes, rashes to skin. Patient denies any recent fever or chills. Patient denies any other physical complaints or physical concerns. Patient reports having a "rare bleeding disorder " does not take any prescription medications at home. Review of Systems: Review of Systems: 14 body systems of review of systems have been reviewed. See HPI for pertinent positives and negative responses, otherwise all other systems are negative, nonpertinent or noncontributory. Constitutional: Negative except as outlined in HPI above. Skin: Negative except as outlined in HPI above. Eyes: Negative except as outlined in HPI above. HENT: Negative except as outlined in HPI above. Respiratory: Negative except as outlined in HPI above. Cardiovascular: Negative except as outlined in HPI above. GI: Negative except as outlined in HPI above. : Negative except as outlined in HPI above. Musculoskeletal: Negative except as outlined in HPI above. Integument: Negative except as outlined in HPI above. Neurologic: Negative except as outlined in HPI above. Endocrine: Negative except as outlined in HPI above. Lymphatic: Negative except as outlined in HPI above. Psychiatric: Negative except as outlined in HPI above. Heart Score: C/O Chest Pain: No Risk Factors: Risk Factors: DM, Current or recent (<one month) smoker, HTN, HLP, family history of CAD, obesity. Risk Scores: Score 0 - 3: 2.5% MACE over next 6 weeks - Discharge Home Score 4 - 6: 20.3% MACE over next 6 weeks - Admit for Clinical Observation Score 7 - 10: 72.7% MACE over next 6 weeks - Early Invasive Strategies Current Medications: Current Medications Medications (Trade) Dose Ordered Sig/Alfred Start Time Stop Time Status Last Admin Dose Admin Info (CONTRAST GIVEN -- Rx MONITORING) 1 each PRN DAILY PRN 12/31/20 12:15 01/02/21 12:14 Iohexol (Omnipaque 350 Mg/ml) 100 ml 1X ONCE 12/31/20 12:15 12/31/20 12:16 DC 12/31/20 12:15 100 ML Morphine Sulfate (Morphine Sulfate) 4 mg 1X ONCE 12/31/20 13:45 12/31/20 13:46 DC 12/31/20 13:46 4 MG Ondansetron HCl (Zofran) 4 mg 1X ONCE 12/31/20 11:45 12/31/20 11:46 DC 12/31/20 12:16 4 MG Allergies: Allergies: Allergies Coded Allergies Type Severity Reaction Last Updated Verified No Known Drug Allergies 10/24/20 No Physical Exam: PE: Constitutional: Well developed, well nourished, no acute distress, non-toxic appearance. 45-year-old male in no apparent distress. Patient is in no respiratory distress. HENT: Normocephalic, atraumatic. Eyes: Conjunctiva normal, no discharge. Neck: Normal range of motion, no stridor. Cardiovascular: No cyanosis appreciated, distal cap refill less than 2 seconds. Heart sounds S1-S2 to auscultation. Lungs & Thorax: Patient is in no respiratory distress, no audible adventitious lung sounds appreciated. Lung sounds clear to auscultation all lung [place], normal work of breathing. Abdomen: Nontender, no abnormalities noted. Skin: Warm, dry, no erythema, no rash. Back: No tenderness, no deformities. Extremities: No tenderness, no cyanosis, no clubbing, ROM intact, no edema. Except for left lower extremity, pain to palpation from medial calf proximal to upper third of medial thigh, saphenous vein hard to palpation, erythematous. 2+ femoral/posterior tibial/pedal pulses. Distal cap refill less than 2 seconds. No pain with movement of hip joint knee joint ankle joint or toe joints. No swelling or edema appreciated, no loss of sensation of the left lower extremity. Neurologic: Alert and oriented X 3, normal motor function, normal sensory function, no focal deficits noted. Psychologic: Affect normal, judgement normal, mood normal. Current Patient Data: Labs: Laboratory Tests Test 12/31/20 11:12 12/31/20 11:15 White Blood Count 7.1 x10^3/uL (4.0-11.0) Red Blood Count 4.94 x10^6/uL (4.30-5.70) Hemoglobin 16.1 g/dL (13.0-17.5) Hematocrit 45.6 % (39.0-53.0) Mean Corpuscular Volume 92 fL (79-100) Mean Corpuscular Hemoglobin 33 pg (25-35) Mean Corpuscular Hemoglobin Concent 35 g/dL (31-37) Red Cell Distribution Width 12.8 % (11.5-14.5) Platelet Count 216 x10^3/uL (140-400) Neutrophils (%) (Auto) 69 % (31-73) Lymphocytes (%) (Auto) 23 % (24-48) L Monocytes (%) (Auto) 6 % (0-9) Eosinophils (%) (Auto) 2 % (0-3) Basophils (%) (Auto) 1 % (0-3) Neutrophils # (Auto) 4.9 x10^3/uL (1.8-7.7) Lymphocytes # (Auto) 1.6 x10^3/uL (1.0-4.8) Monocytes # (Auto) 0.5 x10^3/uL (0.0-1.1) Eosinophils # (Auto) 0.1 x10^3/uL (0.0-0.7) Basophils # (Auto) 0.0 x10^3/uL (0.0-0.2) Prothrombin Time 12.5 SEC (11.7-14.0) Prothrombin Time INR 0.9 (0.8-1.1) Activated Partial Thromboplast Time 27 SEC (24-38) Sodium Level 138 mmol/L (136-145) Potassium Level 4.2 mmol/L (3.5-5.1) Chloride Level 105 mmol/L (98-107) Carbon Dioxide Level 27 mmol/L (21-32) Anion Gap 6 (6-14) Blood Urea Nitrogen 14 mg/dL (8-26) Creatinine 0.9 mg/dL (0.7-1.3) Estimated GFR (Cockcroft-Gault) 90.4 BUN/Creatinine Ratio 16 (6-20) Glucose Level 112 mg/dL (70-99) H Calcium Level 8.6 mg/dL (8.5-10.1) Total Bilirubin 0.7 mg/dL (0.2-1.0) Aspartate Amino Transferase (AST) 25 U/L (15-37) Alanine Aminotransferase (ALT) 46 U/L (16-63) Alkaline Phosphatase 80 U/L (46-116) Creatine Kinase 103 U/L (39-308) Creatine Kinase MB (Mass) 0.7 ng/mL (0.0-3.6) Creatine Kinase MB Relative Index 0.7 % (0-4) Troponin I Quantitative < 0.017 ng/mL (0.000-0.055) Total Protein 6.5 g/dL (6.4-8.2) Albumin 3.5 g/dL (3.4-5.0) Albumin/Globulin Ratio 1.2 (1.0-1.7) Laboratory Tests 12/31/20 11:12 Laboratory Tests 12/31/20 11:15 Vital Signs: Vital Signs Date Time Temp Pulse Resp B/P (MAP) Pulse Ox O2 Delivery O2 Flow Rate FiO2 12/31/20 13:46 18 99 Room Air 12/31/20 13:30 72 131/67 (88) 12/31/20 10:37 99.2 99.2 EKG: EKG: EKG performed at 1134 by ED nursing staff shows a normal sinus rhythm without ectopy heart rate 74 bpm, WI interval 0.188, QTc interval 0.411, no acute STEMI, no ACS, no acute ischemia appreciated, EKG interpreted by ED attending physician Dr. Hernandez. Radiology/Procedures: Radiology/Procedures: PATIENT: ALINE MCCLELLAN ACCOUNT: [id number] : 1975 LOCATION: ER AGE: 45 SEX: M EXAM STATUS: REG ER ORD. PHYSICIAN: RACHEL NEWMAN APRN REASON: LLE pain, swelling, DVT hx PROCEDURE: VENOUS LOWER EXTREMITY LEFT Left lower extremity venous ultrasound, : History: Left leg pain, redness, swelling, history DVT Duplex evaluation including grayscale, color flow and spectral Doppler analysis was performed. The femoral and popliteal veins show no filling defects to suggest DVT. The visualized calf veins are unremarkable. There is lack of compression of the left greater saphenous vein beginning in the mid thigh extending to the calf IMPRESSION: 1. There is no sonographic evidence of deep vein thrombosis in the left lower extremity. 2. Venous thrombosis involving the left greater saphenous vein. Electronically signed by: Herrera Castellanos MD (12/31/2020 12:57 PM) [facility] PATIENT: ALINE MCCLELLAN ACCOUNT: [id number] : 1975 LOCATION: ER AGE: 45 SEX: M EXAM STATUS: PRE ER ORD. PHYSICIAN: RACHEL NEWMAN APRN REASON: short of breath, clotting disorder, DVT hx, smoker PROCEDURE: CT ANGIOGRAPHY CHEST PQRS Compliance Statement: One or more of the following individualized dose reduction techniques were utilized for this examination: 1. Automated exposure control 2. Adjustment of the mA and/or kV according to patient size 3. Use of iterative reconstruction technique CTA CHEST 12/31/2020 12:00 PM INDICATION: Shortness of breath, clotting disorder. History of DVT. COMPARISON: CT chest 12/31/2017 TECHNIQUE: Axial CT images of the chest were obtained after the intravenous administration of nonionic contrast. Coronal and sagittal reformats are provided. Maximum intensity projection images of the thoracic vasculature are provided. FINDINGS: The thyroid gland is normal in appearance. There are no pathologically enlarged axillary, mediastinal or hilar lymph nodes. The heart size is within normal limits. No significant pericardial effusion. Thoracic aorta is normal in course and caliber. There is adequate opacification of the pulmonary arterial system. There there are no filling defects within the pulmonary arterial system to suggest acute or chronic pulmonary embolus. 2 mm solid noncalcified pulmonary nodule in the left upper lobe anteriorly (series 3, image 69). There is a 3 mm solid noncalcified nodule in the lateral right lower lobe (series 3, image 83).. There are no pulmonary infiltrates. There are no pleural effusions. No pulmonary vascular congestion or pneumothorax. Visualized portions of the upper abdomen are within normal limits. No suspicious osseous lesions are visualized. IMPRESSION: There is no evidence for acute or chronic pulmonary embolism. 3 mm solid noncalcified pulmonary nodule in the lateral right lower lobe. Fleischner guidelines for incidentally detected pulmonary nodules suggests no routine follow-up for low risk patients and optional CT at 12 months for high risk patients with solid noncalcified pulmonary nodules less than 6 mm in size. Electronically signed by: Edy Smalls MD (12/31/2020 12:44 PM) [id number] DICTATED and SIGNED BY: EDY SMALLS MD DATE: 12/31/20 [id number] 0 Course & Med Decision Making: Course & Med Decision Making Pertinent Labs and Imaging studies reviewed. (See chart for details) 45-year-old male, vital signs reviewed, presents to the emergency department complaining of lower leg pain. Physical examination concerning for DVT versus venous phlebitis versus. Patient does have a history of pulmonary emboli with similar symptoms. Will order CT angio chest, venous sonogram of left lower extremity to rule out DVT. Cardiorespiratory work-up. Patient EKG unremarkable, negative cardiac enzymes, patient's labs unremarkable. The patient's urine was not infected, there was no pulmonary emboli appreciated, however there is a 3 mm solid noncalcified pulmonary nodule of the right lateral lower lobe, radiologist recommends follow-up in 12 months. Will discuss with patient for follow-up with primary care. The patient's sonogram of left lower extremity negative for DVT however does show greater saphenous thrombosis, this is consistent with physical examination. Discussed with patient, offered admission, patient states he would rather treat at home if at all possible. Called and discussed patient case and work-up with [facility] who feels the patient can be treated at home with close follow-up with primary care, recommended 1.5 mg/kg Lovenox injection in the ED today, start Eliquis prescription tomorrow. Discussed with patient Dr. Hernandez recommendations, patient is amenable to this plan. Patient gave verbal understanding of discharge home instructions, strict follow-up with primary care this week for abnormal chest CT, treatment of greater saphenous DVT of the left lower extremity, return to ER precautions or concerns. Discussed with the patient all findings and diagnostic testing as well as the need to follow-up with their primary care provider for further evaluation and treatment or return to the ED if any new or worsening symptoms. Strict return precautions were also discussed at length, the patient voiced understanding and agreement with the discharge planning. The patient was nontoxic in appearance, in no apparent distress, and hemodynamically stable at the time of disposition. Dragon Disclaimer: Dragon Disclaimer: This electronic medical record was generated, in whole or in part, using a voice recognition dictation system. Departure Departure Impression: Primary Impression: Venous thrombosis of leg Additional Impression: Abnormal chest CT Disposition: HOME / SELF CARE / HOMELESS Condition: GOOD Referrals: BASILIO BENTON (PCP) Additional Instructions: You were seen today in the emergency department for a pain in your left leg. With your history of pulmonary embolism, a CT angio chest was performed along with a sonogram of your left leg. The CT of your chest did not show any concerning signs of a pulmonary embolus however it did note a 3 mm noncalcified pulmonary nodule of the right lateral lobe, these findings are usually followed up with a additional CT at 12 months, please see your doctor this week to discuss this abnormal chest CT finding so your primary care doctor can schedule an upper appointment for CT at 12 months. The sonogram of your left leg did show a thrombosis of the greater saphenous vein. We discussed anticoagulant therapy at home, you were given a dose of Lovenox in the emergency department today 1.5 mg/kg. I am prescribing you Eliquis to take daily, please take as prescribed, please follow-up with your primary care doctor this week to let them know you are taking the blood thinner Eliquis for this venous thrombosis. You had indicated you quit smoking 1 week ago. Please continue to not smoke. Please return the emergency department for sudden onset of increased shortness of breath or chest pain. Or other concerns. Discussed with the patient all findings and diagnostic testing as well as the need to follow-up with their primary care provider for further evaluation and treatment or return to the ED if any new or worsening symptoms. Strict return precautions were also discussed at length, the patient voiced understanding and agreement with the discharge planning. The patient was nontoxic in appearance, in no apparent distress, and hemodynamically stable at the time of disposition. Please note, I have given you 1 weeks worth of Eliquis prescription. It is imperative you follow-up with your primary care doctor within this week for continuation of this medication. EMERGENCY DEPARTMENT GENERAL DISCHARGE INSTRUCTIONS Thank you for coming to [facility] Emergency Department (ED) today and trusting us with you care. We trust that you had a positive experience in our Emergency Department. If you wish to speak to the department management, you may call the Director at [phone]. YOUR FOLLOW UP INSTRUCTIONS ARE FOLLOWS: 1. Do you have a private Doctor? If you do not have a private doctor, please ask for a resource list of physicians or clinics that may be able to assist you with follow up care. 2. The Emergency Physicain has interpreted your x-rays. The X-Ray specialist will also review them. If there is a change in the findings, you will be notified in 48 hours when at all possible. 3. A lab test or culture has been done, your results will be reviewed and you will be notified if you need a change in treatment. ADDITIONAL INSTRUCTIONS AND INFORMATION: 1. Your care today has been supervised by a physician who is specially trained in emergency care. Many problems require more than one evaluation for a complete diagnosis and treatment. We recommend that you schedule your follow up appointment as recommended to ensure complete treatment of you illness or injury. If you are unable to obtain follow up care and continue to have a problem, or if your condition worsens, we recommend that you return to the ED. 2. We are not able to safely determine your condition over the phone nor are we able to give sound medical advice over the phone. For these safety reasons, if you call for medical advice we will ask you to come to the ED for further evaluation. 3. If you have any questions regarding these discharge instructions please call the ED at [phone]. SAFETY INFORMATION: In the interest of safety, wellness, and injury prevention; we encourage you to wear your sealbelt, if you smoke; quite smoking, and we encourage family to use a protective helmet for bicycling and other sporting events that present an increased risk for head injury. IF YOUR SYMPTOMS WORSEN OR NEW SYMPTOMS DEVELOP, OR YOU HAVE CONCERNS ABOUT YOUR CONDITION; OR IF YOUR CONDITION WORSENS WHILE YOU ARE WAITING FOR YOUR FOLLOW UP APPOINTMENT; EITHER CONTACT YOUR PRIMARY CARE DOCTOR, THE PHYSICIAN WHOSE NAME AND NUMBER YOU WERE GIVEN, OR RETURN TO THE ED IMMEDIATELY. Scripts Hydrocodone Bit/Acetaminophen (HYDROCODONE-APAP 5-325 ) 1 Tab Tablet 1 TAB PO PRN Q6HRS PRN for PAIN, #15 TAB 0 Refills Prov: RACHEL NEWMAN APRN 12/31/20 Apixaban (ELIQUIS) 5 Mg Tablet 10 MG PO BID for 7 Days, #28 TAB 0 Refills Prov: RACHEL NEWMAN APRN 12/31/20 RACHEL NEWMAN APRN Dec 31, 2020 14:28
[2020-12-31 14:30] VITALS: BP 117/69
--- NOTE | 2020-12-31 14:46 | EKG ---
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
[2020-12-31] MEDS ORDERED: HYDR-2761 PO (16:23)
== END 2020-12-31 14:40 | disposition home or self-care (01) ==
LOC: ER 10:09
DX: I82.812 Embolism and thrombosis of superficial veins of left lower extremity (principal); R93.1 Abnormal findings on diagnostic imaging of heart and coronary circulation; F17.200 Nicotine dependence, unspecified, uncomplicated; Z86.718 Personal history of other venous thrombosis and embolism
CPT/HCPCS: 36415; 71275; 80053; 81001; 82553; 84484; 85025; 85610; 85730; 87040; 93005; 93971; 96372; 96374; 96375; 96376; 99285; J1650; J2270; J2405; Q9967; 96368